=== PATIENT | female | born 2000 | race Caucasian/White ===

== ENCOUNTER 2024-10-01 13:11 | Outpatient (AMB) | payer MEDICAID, SELFPAY ==
--- NOTE | 2024-10-01 13:18 | A.OFFVIS_ITS ---
Vital Signs 10/01/24 13:21 Height 5 ft 4 in Weight 108 lb BMI 18.5 BP 106/63 Blood Pressure Location Lt brachial Position Sitting Pulse 72 Intake Visit Reasons: Altered Bowel Function Intake Note: Lindsay presents in the office as a new patient for altered bowel functions. CC: She states that she is having issues with constipation - she states that linzess is working for the time being but she does not feel that it is a ocean transportation intermediary solution. Always has pains in the stomach - states that it is all over her abdomen. She does not usually have bleeding when she has a BM. Cutting Torch Operator Required: No Allergies cat dander Allergy (Mild, Verified 10/01/24 13:25) Unknown dog dander Allergy (Mild, Verified 10/01/24 13:25) Unknown nickel Allergy (Mild, Verified 10/01/24 13:25) Unknown papaya Allergy (Mild, Verified 10/01/24 13:25) Unknown hay Allergy (Mild, Uncoded 10/01/24 13:25) Unknown HPI Comments Details: 24 y.o F with rapid neurologic deterioration of unknown etiology from high functioning individual to an ambulatory wheelchair user, who is here for evaluation of GI sx. Pls see scanned summary of pt's illness course since 2021. From GI standpoint, reports that gradually went from having a daily BM to having severe bloating with constipation and hard stool. Has to sit on the toilet for a prolonged period of time and splint and maneuver the stool out. Was started on linzess by PCP in Jun 2024. Initially 145 which she did not tolerate. Now on 72 mcg and has 3-9 BMs per day - so often skips. BMs are formed but more frequent. Notes that despite having a soft to semi solid stool still not able to evacuate properly. Was seen by colorectal surgeon Dr Blank and going to pelvic floor PT at [facility]. Pt now elevates her legs and also exhales while trying to evacuate. Has not had defecography or ARMS. Has also not been seen by a dedicated connective tissue disorder or dysautonomia team. Does not take fiber supplement. Is vegan but due to eating disorder (arfid) has a very restricted diet. Meals: vegan fish sticks, rice or wheat based pasta, soups , nuts PENDING SALE TO [facility] Surgical History (Updated 10/01/24 @ 13:29 by JAYY Trinh) History of wisdom tooth extraction, class I edentulism Family History (Updated 10/01/24 @ 13:29 by JAYY Trinh) Family/Other Colon cancer Review of Systems Const All systems reviewed & are unremarkable except as noted in HPI and below Physical Exam Vital Signs: Last Vital Signs Pulse 72 10/01/24 13:21 BP 106/63 10/01/24 13:21 BMI result Body Mass Index 18.5 Thin female No apparent distress Alert and oriented x3, seated in wheelchair but able to get up without assistance and with normal gait Assessment & Plan Assessment & Plan (1) Pelvic floor dysfunction in female: Code(s): M62.89 - Other specified disorders of muscle Category: Medical (2) Connective tissue disorder: Code(s): M35.9 - Systemic involvement of connective tissue, unspecified Category: Medical (3) Constipation: Code(s): K59.00 - Constipation, unspecified Category: Medical Plan The lack of unifying diagnosis so far is certainly challenging. Most of the visit was spent guiding the pt and mom accompanying her to seek the right resources to help them get proper assessment. Suspect may need dedicated clinical support from neuropathy center at [facility]. Have had barriers getting genetic testing done for hypermobility/CTD. Recommend [facility] being the closest one. If does not work out, can pursue other avenues such as Dr Ortega's office in [facility]. In terms of GI sx, ddx include pelvic floor dysfunction, CTD, small fiber neuropathy, IBS. Plan: - Increase hydration - Add fiber supplementation - Elevate legs while having a BM - Use blowing bubbles technique to during evacuation - Cont pelvic floor PT - Consider miralax instead of linzess which may help achieve a more controlled response - XR defecography - Will review indication for further testing such as ARMS vs colo based on above. - Will also discuss referral to dedicated centers such as [facility] with Dr Mehreen Acuña or Dr Juan Luis Hoffman - Pt was also encouraged to discuss further referrals to genetics and rheum as well as testing such as tilt table with PCP Pt to call office after defecography done. Orders: Orders XR defecography Today M62.89 - Other specified disorders of muscle Coding Level of Care Code New Pt Level 5 (22844) Complex EM visit Add On G2211 Diagnoses Pelvic floor dysfunction in female M62.89 Connective tissue disorder M35.9 Constipation K59.00
[2024-10-01 13:21] VITALS: BP 106/63; PULSE 72; BMI 18.5
== END 2024-10-01 14:57 | disposition home or self-care (01) ==
PROVIDERS: PCP Family Medicine; Visit Provider Internal Medicine
DX: K59.00 Constipation, unspecified (principal); M62.89 Other specified disorders of muscle; M35.9 Systemic involvement of connective tissue, unspecified
CPT/HCPCS: 99204; G2211

== ENCOUNTER → 2024-10-01 13:11 | Outpatient (BNVA) | payer MEDICAID, SELFPAY | PROVIDERS: PCP Family Medicine; Visit Provider Internal Medicine | DX: M62.89 Other specified disorders of muscle (principal); M35.9 Systemic involvement of connective tissue, unspecified; K59.00 Constipation, unspecified | CPT/HCPCS: 99202 ==